=== PATIENT | male | born 1990 | race Caucasian/White ===

== ENCOUNTER 2017-04-05 15:16 | Emergency (ER) | payer OTHER ==
[~2017-04-05] VITALS: Ht 172.7 cm; Wt 59.0 kg
[2017-04-05 15:29] LABS: LYMPH # 3.3 K/mm3 (0.7-4.5); LYMPH % 35.3 % (10-50)
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
[2017-04-05 16:36] VITALS: BP 142/86
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
== END 2017-04-05 16:37 | disposition home or self-care (01) ==
LOC: ER 15:16
PROVIDERS: General Practice
DX: S06.0X0A Concussion without loss of consciousness, initial encounter (principal); S09.90XA Unspecified injury of head, initial encounter; S70.211A Abrasion, right hip, initial encounter; S30.810A Abrasion of lower back and pelvis, initial encounter; V80.42XA Occupant of animal-drawn vehicle injured in collision with car, pick-up truck, van, heavy transport vehicle or bus, initial encounter; Y92.413 State road as the place of occurrence of the external cause; Z23 Encounter for immunization